=== PATIENT | female | born 1950 | race Caucasian/White ===

== ENCOUNTER 2022-08-12 10:13 | Outpatient (CLI) | payer MEDICARE | END 2022-08-12 10:14 | disposition home or self-care (01) | LOC: CSHMAMMO 10:13 | PROVIDERS: ATTEND Obstetrics & Gynecology | DX: Z12.31 Encounter for screening mammogram for malignant neoplasm of breast (principal); Z13.820 Encounter for screening for osteoporosis; N95.9 Unspecified menopausal and perimenopausal disorder; M85.851 Other specified disorders of bone density and structure, right thigh; M85.852 Other specified disorders of bone density and structure, left thigh; Z80.3 Family history of malignant neoplasm of breast | CPT/HCPCS: 77063; 77067; 77080 ==